=== PATIENT | female | born 1970 | race Caucasian/White ===

== ENCOUNTER → 2019-08-07 16:56 | Outpatient (CLI) | payer OTHER, SELFPAY ==
--- NOTE | 2019-08-07 | DI.MRI.S_ITS ---
PROCEDURE: MR HEAD/BRAIN WO CON INDICATIONS: Anisocoria TECHNIQUE: Noncontrast axial T1 spin echo, axial T2 fast spin echo, sagittal and axial FLAIR, coronal T2 fast spin echo, axial gradient echo, axial diffusion and ADC through the brain. COMPARISON: None. FINDINGS: Image quality: Excellent. CSF Spaces: Basal cisterns are patent. No extra-axial fluid collections. Ventricles are normal in size and shape. Brain: No intracranial masses or hemorrhage. Tate/white matter interface is normal. Brainstem appears normal. Diffusion-weighted images demonstrate no acute ischemic insult. No chronic ischemic insults. Normal intravascular flow voids are present. Skull and face: Calvarium has normal marrow signal. Orbits appear normal. Sinuses: Sinuses and mastoids are clear. IMPRESSION: Unremarkable intracranial study, without masses or other imaging explanation for the patient's presenting history of anisocoria. Dictated by: García Donis M.D. on 08/07/2019 at 17:12 Approved by: García Donis M.D. on 08/07/2019 at 17:13
== END ==
PROVIDERS: PCP Family Medicine; Referring Provider Family Medicine; Visit Provider Family Medicine
DX: H57.02 Anisocoria (principal); G43.109 Migraine with aura, not intractable, without status migrainosus; Q67.5 Congenital deformity of spine
CPT/HCPCS: 70551